=== PATIENT | female | born 1950 | race Two or more races ===

== ENCOUNTER 2019-03-19 16:19 | Emergency (ER) | payer MEDICARE, OTHER ==
[~2019-03-19] VITALS: Ht 154.9 cm; Wt 65.8 kg
[2019-03-19 16:20] VITALS: BP 132/73
--- NOTE | 2019-03-19 16:20 | NUR ---
ED Nurse Note: pt was brought in by ambulance c/o laceration on the left parietal area and pain and bruise on the left shoulder. per ems pt was with her grand kids on the excalator and had a mechanical fall. pt denies loc. seen by robb. pt is complaining of 10/10 pain on the left shoulder and stated that she has multiple surgeries on the area. will continue to monitor
[2019-03-19] MEDS ORDERED: ASPIR 8181 MG ORAL (16:22)
[2019-03-19] MEDS ORDERED: Morphine Sulfate 2mg/ml Inj(IV/IM USE ONLY) IM ONE (16:45)
--- NOTE | 2019-03-19 16:50 | NUR ---
ED Nurse Note: pt went to ct with tech
--- NOTE | 2019-03-19 17:01 | NUR ---
ED Nurse Note: PT WENT BACK FROM CT WITH TECH
[2019-03-19] MEDS ORDERED: Bacitracin Oint UD TOPIC ONE ×2 (18:10→18:15)
[2019-03-19] MEDS ORDERED: TRAMADOL HCL50 MG ORAL (18:14)
[2019-03-19] MEDS ORDERED: BACITRACIN15 GM TOPIC (18:14)
[2019-03-19 18:20] VITALS: BP 125/70
[2019-03-19 18:23] VITALS: BP 125/70
--- NOTE | 2019-03-19 18:23 | NUR ---
ER DISCHARGE NOTE: Patient is cleared to be discharged per ERMD, pt is aox4, on room air, with stable vital signs. pt was given dc and prescription instructions, pt was able to verbalize understanding, pt id band removed without complications. pt is able to ambulate with steady gait. pt took all belongings.
--- NOTE | 2019-03-19 23:24 | Emergency Room Report ---
History of Present Illness General Chief Complaint: Multiple Trauma/Fall Source: Patient Present Illness HPI 68-year-old female presents ED for evaluation. Brought in by EMS status post fall with head injury today. States was mechanical trip and fall. Has bleeding left-sided scalp. Patient is in c-collar. States that she did not lose consciousness. Complaining of headache and neck pain. 10 out of 10, sharp , nonradiating. States that she is currently wearing the c-collar because of a C2 fracture from a few weeks ago. Lives in [facility] and was evaluated hospital there. Denies any arm or leg weakness. Denies any bowel or bladder incontinence. No other aggravating relieving factors. Denies any other associated symptoms Allergies: Coded Allergies: SULFAMETHOXAZOLE (Verified Allergy, Unknown, 03/19/19) TRIMETHOPRIM (Verified Allergy, Unknown, 03/19/19) Patient History Past Medical History: none Past Surgical History: none Pertinent Family History: none Social History: Denies: smoking, alcohol use, drug use Now: No Immunizations: UTD Reviewed Nursing Documentation: PMH: Agreed; PSxH: Agreed Nursing Documentation-PMH Past Medical History: No History, Except For Review of Systems All Other Systems: negative except mentioned in HPI Physical Exam Vital Signs Date Time Temp Pulse Resp B/P (MAP) Pulse Ox O2 Delivery O2 Flow Rate FiO2 03/19/19 16:12 98.1 76 16 98 Room Air 03/19/19 16:20 132/73 Sp02 EP Interpretation: reviewed, normal General Appearance: no apparent distress, alert, GCS 15, non-toxic Head: normocephalic, other - L parietal scalp hematoma. no active bleeding Eyes: bilateral eye normal inspection, bilateral eye PERRL, bilateral eye EOMI ENT: hearing grossly normal, normal pharynx, no angioedema, normal voice Neck: full range of motion, supple/symm/no masses, tender midline Respiratory: chest non-tender, lungs clear, normal breath sounds, speaking full sentences Cardiovascular #1: regular rate, rhythm, no edema Gastrointestinal: normal inspection Rectal: deferred Genitourinary: no CVA tenderness Musculoskeletal: normal inspection, tender - L shoulder Neurologic: alert, oriented x3, responsive, motor strength/tone normal, sensory intact, speech normal Psychiatric: normal inspection Skin: normal inspection Lymphatic: normal inspection Procedures Splinting Splinting : Consent: Verbal Pre-Made Type: shoulder sling Pre-Proc Neuro Vasc Exam: normal Post-Proc Neuro Vasc Exam: normal Patient Tolerated: Well Complications: None Medical Decision Making Diagnostic Impression: Primary Impression: Scalp contusion Qualified Codes: S00.03XA - Contusion of scalp, initial encounter Additional Impression: Fall Qualified Codes: W19.XXXA - Unspecified fall, initial encounter ER Course Hospital Course 68-year-old female presents to ED for evaluation of head injury and shoulder pain. Differential diagnoses include: skull fx, intracranial injury, concussion Clinical course Patient placed on stretcher. After initial history and physical I ordered CT head, CT Cspine, L shoulder xray and pain medications Left shoulder x-ray shows old hardware in place but no acute fracture CT head unremarkable CT C-spine shows chronic C1 and C2 fractures Patient has no focal neurological deficits. Patient maintains c-collar. Wound irrigated on scalp. An abrasion which does not require suturing. Pressure dressing and bacitracin applied. Discussed findings with patient and family. Patient can be safely discharged at this time. Shoulder sling applied. States she will follow-up with her PMD Diagnosis - scalp contusion, fall Stable and discharged to home with Rx Tramadol, bacitracin. Followup with PMD. Return to ED if symptoms recur or worsen Other X-Ray Diagnostic Results Other X-Ray Diagnostic Results : X-Ray ordered: L shoulder # of Views/Limited Vs Complete: 3 View Indication: Pain EP Interpretation: Yes Interpretation: no dislocation, no soft tissue swelling, no fractures, other - hardware in place Impression: No acute disease Electronically Signed by: Electronically signed by Henry Toney MD CT/MRI/US Diagnostic Results CT/MRI/US Diagnostic Results #1: Imaging Test Ordered: CT Head Impression no acute process CT/MRI/US Diagnostic Results #2: Imaging Test Ordered: CT C spine Impression No acute fracture or subluxation. Chronic C1 and C2 fractures. Postop and degenerative changes. Last Vital Signs Date Time Temp Pulse Resp B/P (MAP) Pulse Ox O2 Delivery O2 Flow Rate FiO2 03/19/19 18:23 98.0 88 16 125/70 98 Room Air Status: improved Disposition: HOME, SELF-CARE Condition: Stable Scripts Bacitracin (Bacitracin) 28.4 Gm Oint...g. 1 APPLIC TOPIC THREE TIMES A DAY, #28.4 GM Prov: Henry Toney MD 03/19/19 Tramadol Hcl* (ULTRAM*) 50 Mg Tablet 50 MG ORAL Q6H PRN for For Pain, #12 TAB 0 Refills Prov: Henry Toney MD 03/19/19 Referrals: NON PHYSICIAN (PCP) Patient Instructions: Facial or Scalp Contusion, Neve-zo-Oesh Henry Toney MD March 19, 2019 23:24
--- NOTE | 2019-03-20 10:01 | Diagnostic Imaging Report ---
Indication: Patient presents with head trauma. Per history, patient had a C2 fracture few weeks ago and was a c-collar. Technique: Continuous helical imaging of the cervical spine was obtained transaxially from the skull base to the upper thoracic spine. 2-D coronal and sagittal reformatted images were obtained. Automatic Exposure Control was utilized. Total Dose length Product (DLP): 1595.[address] Dose Index Volume (CTDIvol): 70.38,9.77 mGy Comparison: None Findings: There is a fracture involving the midportion of the dens with slight posterior displacement of the upper part of the dens relative to the lower part which includes the body of the C2. There is some mild posterior subluxation of the C1 ring along with the upper dens fragment. There is a few millimeter distraction of the fracture which has not healed. It is not possible to know whether there is any change with regard to the alignment of this fracture injury, which by history of recurrent a few weeks ago. There is no prevertebral edema. The patient has had surgery which includes resection of some of the cervical vertebra and placement of a bone graft and anterior compression plate fusion hardware. Resection of the C5 and C6 vertebra noted. Compression plate screws are fixed at C4 and at C7. Overall alignment appears satisfactory. There are posterior lateral mass screws and fusion rods demonstrated from C4 through C7. Moderate degenerative changes are present. There is a mild anterolisthesis at C2-3. There is an anterolisthesis that is mild at C7-T1. IMPRESSION: Subacute fracture involving the dens (type II fracture) consistent with the given history of fracture involving the dens a few weeks ago. Any change with regard to alignment of the fracture, or superimposed new injury is unknown as there are no prior studies. Status post resection of the C5 and C6 vertebra, placement of bone graft and anterior fusion hardware C4-C7. Spondylosis. [facility] has communicated the preliminary results to the Emergency Department. Their findings are largely concordant with this report. The CT scanner at [facility] is accredited by the [employer] and the scans are performed using dose optimization techniques as appropriate to a performed exam including Automatic Exposure control.
--- NOTE | 2019-03-20 10:42 | Diagnostic Imaging Report ---
Indication: Headache Technique: Contiguous 5 mm thick transaxial imaging of the head obtained in a Siem[employer] Sensation [address] scanner. Soft tissue and bone windows generated. Automatic Exposure Control was utilized. Total Dose length Product (DLP): 1595.[address] Dose Index Volume (CTDIvol): 70.38,9.77 mGy Comparison: none Findings: There is mild prominence of the ventricles, basal cisterns, and cerebral sulci consistent with atrophy. Mild, nonspecific, white matter hypoattenuation is noted throughout the brain consistent with chronic small vessel disease. There is no midline shift, edema, acute hemorrhage, mass effect, or abnormal extra-axial fluid collections. There is a large cephalohematoma over the left parietal scalp. No calvarial fracture identified. Impression: No acute intracranial bleed, mass effect or edema. Mild atrophy of the brain. Nonspecific white matter hypoattenuation probably due to chronic small vessel disease. Large left-sided scalp contusion. [facility] has communicated the preliminary results to the Emergency Department. Their findings are largely concordant with this report. The CT scanner at [facility] is accredited by the [employer] and the scans are performed using dose optimization techniques as appropriate to a performed exam including Automatic Exposure control.
--- NOTE | 2019-03-20 11:22 | Diagnostic Imaging Report ---
Indication: left shoulder pain Findings: 3 views of the left shoulder were obtained. There is an acute fracture of the distal clavicle. Bones are osteopenic. 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 Alignment and position appears unremarkable.. IMPRESSION: Acute left distal clavicle fracture
--- NOTE | 2019-03-20 20:22 | Cardiology Report ---
APPROVED REPORT EKG Measurement Heart [id number] Normal sinus rhythm Possible Inferior infarct, age undetermined Abnormal ECG
== END 2019-03-19 18:23 | disposition home or self-care (01) ==
LOC: EDSEX 16:19 → EDBD 16:19 → EMR 17:15
DX: S00.03XA Contusion of scalp, initial encounter (principal); W01.0XXA Fall on same level from slipping, tripping and stumbling without subsequent striking against object, initial encounter; Y93.9 Activity, unspecified; Y92.9 Unspecified place or not applicable; Z88.2 Allergy status to sulfonamides; Z88.8 Allergy status to other drugs, medicaments and biological substances; M47.9 Spondylosis, unspecified; G31.9 Degenerative disease of nervous system, unspecified; S42.032A Displaced fracture of lateral end of left clavicle, initial encounter for closed fracture; M85.812 Other specified disorders of bone density and structure, left shoulder; Z96.612 Presence of left artificial shoulder joint
CPT/HCPCS: 70450; 72125; 73030; 93005; 96372; 99284; J2270